=== PATIENT | male | born 1990 | race Caucasian/White ===

== ENCOUNTER 2019-11-25 11:45 | Emergency (ER) | payer OTHER ==
[2019-11-25] MEDS ORDERED: Sodium Chloride 0.9% 1000 ML 1,000 ML IV STA (12:31)
--- NOTE | 2019-11-25 12:31 | ERPHSYRPT ---
- History of Present Illness Time Seen by Provider: 11/25/19 13:00 Source: patient Exam Limitations: no limitations Triage Nursing Assessment: Is a 29-year-old male with a complaint of cough and sinus pain for 1 week worse on the right side. Also complains of shortness of breath and says he is coughing up some dark sputum. His teeth have been hurting he has had fever and chills. Physician History: Patient is a 29-year-old male who presents with a cough shortness of breath x1 week he is also had sinus pain sputum has been produced it is dark in color he has been told he had a mouth infection at [place] and he complains of fever and chills. Allergies/Adverse Reactions: No Known Drug Allergies Allergy (Verified 11/25/19 13:57) - Review of Systems Constitutional: Fever, Chills Eyes: No Symptoms Ears, Nose, & Throat: Ear Pain, Sinus Drainage, Mouth Pain, Throat Swelling, Painful Swallowing Respiratory: No Cough, No Dyspnea Cardiac: No Chest Pain, No Edema, No Syncope Abdominal/Gastrointestinal: No Symptoms Genitourinary Symptoms: No Dysuria Musculoskeletal: No Back Pain, No Neck Pain Skin: No Rash Neurological: No Dizziness, No Focal Weakness, No Sensory Changes Psychological: No Symptoms - Past Medical History Pertinent Past Medical History: No - Nursing Vital Signs Nursing Vital Signs: Initial Vital Signs Temperature 98.7 F 11/25/19 12:25 Pulse Rate 77 11/25/19 12:25 Respiratory Rate 18 11/25/19 12:25 Blood Pressure 136/86 11/25/19 12:25 O2 Sat by Pulse Oximetry 99 11/25/19 12:25 Pain Scale Pain Intensity 10 - Physical Exam General Appearance: mild distress, alert Eye Exam: PERRL/EOMI, eyes nml inspection Ears, Nose, Throat Exam: normal ENT inspection, TMs normal, pharynx normal, moist mucous membranes Neck Exam: normal inspection, non-tender, supple, full range of motion Respiratory Exam: normal breath sounds, lungs clear, No respiratory distress Cardiovascular Exam: regular rate/rhythm, normal heart sounds Gastrointestinal/Abdomen Exam: soft, No tenderness Back Exam: normal inspection, No CVA tenderness, No vertebral tenderness Extremity Exam: normal inspection, normal range of motion Neurologic Exam: alert, oriented x 3, cooperative, normal mood/affect, sensation nml, No motor deficits Skin Exam: normal color, warm, dry, No rash Lymphatic Exam: No adenopathy - Course Nursing assessment & vital signs reviewed: Yes - Radiology Exams Chest X-ray Interpretation: Negative - CT Exams Maxillofacial Bones CT Interpretation: Other (Scan of the sinuses were basically negative.) Ordered Tests: Active Orders 24 hr Category Date Time Status EKG-ER Only STAT Care 11/25/19 12:31 Active CHEST 1 VIEW (PORTABLE) Stat Exams 11/25/19 12:33 Completed SINUSES WITHOUT CONTRAST [CT] Stat Exams 11/25/19 13:34 Completed BLOOD CULTURE Stat Lab 11/25/19 13:30 Received CBC W DIFF Stat Lab 11/25/19 12:31 Completed CMP Stat Lab 11/25/19 12:31 Completed D-DIMER QUANTITATIVE Stat Lab 11/25/19 12:31 Completed Ferritin Stat Lab 11/25/19 12:31 Completed LDH-LACTATE DEHYDROGENASE Stat Lab 11/25/19 12:31 Completed Lactic Acid Stat Lab 11/25/19 13:08 Completed PROTIME WITH INR Stat Lab 11/25/19 12:31 Completed UA W/RFX UR CULTURE Stat Lab 11/25/19 Completed Medication Summary Discontinued Medications Generic Name Dose Route Start Last Admin Trade Name Freq PRN Reason Stop Dose Admin Hydromorphone HCl 1 mg 11/25/19 13:32 11/25/19 13:50 Hydromorphone 1 Mg/Ml Ampule IV 11/25/19 13:33 1 mg STAT ONE Administration Hydromorphone HCl Confirm 11/25/19 13:48 Hydromorphone 1 Mg/Ml Ampule Administered 11/25/19 13:49 Dose 1 mg .ROUTE .STK-MED ONE Hydromorphone HCl 1 mg 11/25/19 15:16 Hydromorphone 1 Mg/Ml Ampule IV 11/25/19 15:17 STAT ONE Hydromorphone HCl Confirm 11/25/19 15:54 Hydromorphone 1 Mg/Ml Ampule Administered 11/25/19 15:55 Dose 1 mg .ROUTE .STK-MED ONE Sodium Chloride 1,000 mls @ 999 mls/hr 11/25/19 12:31 11/25/19 15:01 Sodium Chloride 0.9% 1000 Ml IV 11/25/19 13:31 Infused .Q1H1M STA Infusion Sodium Chloride Confirm 11/25/19 12:53 Sodium Chloride 0.9% 1000 Ml Administered 11/25/19 12:54 Dose 1,000 mls @ ud .ROUTE .STK-MED ONE Ondansetron HCl 4 mg 11/25/19 13:32 11/25/19 13:50 Zofran 4 Mg/2 Ml Vial IV 11/25/19 13:33 4 mg STAT ONE Administration Ondansetron HCl Confirm 11/25/19 13:48 Zofran 4 Mg/2 Ml Vial Administered 11/25/19 13:49 Dose 4 mg .ROUTE .STK-MED ONE Lab/Rad Data: Laboratory Result Diagrams 11/25/19 12:31 11/25/19 12:31 Laboratory Results 11/25/19 11/25/19 11/25/19 Range/Units Unknown Unknown 13:08 WBC (4.0-10.5) K/mm3 RBC (4.1-5.6) M/mm3 Hgb (12.5-18.0) gm/dl Hct (42-50) % MCV (78-100) fl MCH (26-32) pg MCHC (32-36) g/dl RDW (11.5-14.0) % Plt Count (150-450) K/mm3 MPV (7.5-11.0) fl Gran % (36.0-66.0) % Eos # (Auto) (0-0.5) Absolute Lymphs (auto) (1.0-4.6) Absolute Monos (auto) (0.0-1.3) Lymphocytes % (24.0-44.0) % Monocytes % (0.0-12.0) % Eosinophils % (0.00-5.0) % Basophils % (0.0-0.4) % Absolute Granulocytes (1.4-6.9) Basophils # (0-0.4) PT (8.83-12.87) SECONDS INR (0.8-3.0) D-Dimer (215-500) ng/mL Sodium (137-145) mmol/L Potassium (3.5-5.1) mmol/L Chloride (98-107) mmol/L Carbon Dioxide (22-30) mmol/L Anion Gap (5-15) MEQ/L BUN (9-20) mg/dL Creatinine (0.66-1.25) mg/dL Estimated GFR ML/MIN Glucose (74-106) mg/dL Lactic Acid 1.4 (0.4-2.0) Calcium (8.4-10.2) mg/dL Ferritin (17.9-464) ng/mL Total Bilirubin (0.2-1.3) mg/dL AST (17-59) U/L ALT (0-50) U/L Alkaline Phosphatase (38-126) U/L Lactate Dehydrogenase (120-246) U/L Serum Total Protein (6.3-8.2) g/dL Albumin (3.5-5.0) g/dL Urine Color YELLOW (YELLOW) Urine Appearance CLEAR (CLEAR) Urine pH 7.0 (5-6) Ur Specific [place] 1.011 (1.005-1.025) Urine Protein NEGATIVE (Negative) Urine Ketones NEGATIVE (NEGATIVE) Urine Blood NEGATIVE (0-5) Stevie/ul Urine Nitrite NEGATIVE (NEGATIVE) Urine Bilirubin NEGATIVE (NEGATIVE) Urine Urobilinogen NEGATIVE (0-1) mg/dL Ur Leukocyte Esterase NEGATIVE (NEGATIVE) Urine WBC (Auto) NONE (0-5) /HPF Urine RBC (Auto) NONE (0-2) /HPF U Epithel Cells (Auto) NONE (FEW) /HPF Urine Bacteria (Auto) NONE (NEGATIVE) /HPF Urine Culture Reflexed NO (NO) Urine Glucose NEGATIVE (NEGATIVE) mg/dL Influenza Type A Ag NEGATIVE (NEGATIVE) Influenza Type B Ag NEGATIVE (NEGATIVE) RSV (PCR) NEGATIVE (Negative) Group A Strep Antibody NOT DETECTED (NEGATIVE) 11/25/19 11/25/19 11/25/19 Range/Units 12:31 12:31 12:31 WBC 10.8 H (4.0-10.5) K/mm3 RBC 4.87 (4.1-5.6) M/mm3 Hgb 15.3 (12.5-18.0) gm/dl Hct 45.4 (42-50) % MCV 93.2 (78-100) fl MCH 31.4 (26-32) pg MCHC 33.7 (32-36) g/dl RDW 13.3 (11.5-14.0) % Plt Count 208 (150-450) K/mm3 MPV 11.1 H (7.5-11.0) fl Gran % 72.5 H (36.0-66.0) % Eos # (Auto) 0.03 (0-0.5) Absolute Lymphs (auto) 1.96 (1.0-4.6) Absolute Monos (auto) 0.96 (0.0-1.3) Lymphocytes % 18.2 L (24.0-44.0) % Monocytes % 8.9 (0.0-12.0) % Eosinophils % 0.3 (0.00-5.0) % Basophils % 0.1 (0.0-0.4) % Absolute Granulocytes 7.81 H (1.4-6.9) Basophils # 0.01 (0-0.4) PT 13.0 H (8.83-12.87) SECONDS INR 1.15 (0.8-3.0) D-Dimer 427 (215-500) ng/mL Sodium 139 (137-145) mmol/L Potassium 3.9 (3.5-5.1) mmol/L Chloride 104 (98-107) mmol/L Carbon Dioxide 26 (22-30) mmol/L Anion Gap 13.2 (5-15) MEQ/L BUN 9 (9-20) mg/dL Creatinine 0.69 (0.66-1.25) mg/dL Estimated GFR > 60.0 ML/MIN Glucose 101 (74-106) mg/dL Lactic Acid (0.4-2.0) Calcium 9.7 (8.4-10.2) mg/dL Ferritin 136 (17.9-464) ng/mL Total Bilirubin 1.30 (0.2-1.3) mg/dL AST 35 (17-59) U/L ALT 18 (0-50) U/L Alkaline Phosphatase 72 (38-126) U/L Lactate Dehydrogenase 207 (120-246) U/L Serum Total Protein 8.7 H (6.3-8.2) g/dL Albumin 5.0 (3.5-5.0) g/dL Urine Color (YELLOW) Urine Appearance (CLEAR) Urine pH (5-6) Ur Specific [place] (1.005-1.025) Urine Protein (Negative) Urine Ketones (NEGATIVE) Urine Blood (0-5) Stevie/ul Urine Nitrite (NEGATIVE) Urine Bilirubin (NEGATIVE) Urine Urobilinogen (0-1) mg/dL Ur Leukocyte Esterase (NEGATIVE) Urine WBC (Auto) (0-5) /HPF Urine RBC (Auto) (0-2) /HPF U Epithel Cells (Auto) (FEW) /HPF Urine Bacteria (Auto) (NEGATIVE) /HPF Urine Culture Reflexed (NO) Urine Glucose (NEGATIVE) mg/dL Influenza Type A Ag (NEGATIVE) Influenza Type B Ag (NEGATIVE) RSV (PCR) (Negative) Group A Strep Antibody (NEGATIVE) - Progress Progress: unchanged Air Movement: fair Blood Culture(s) Obtained: No Antibiotics given: Yes - Departure Departure Disposition: Home Clinical Impression: Bronchitis Condition: Stable Critical Care Time: No Referrals: UMANG DOANHUE [Primary Care Provider] - Instructions: Cough, Adult (DC) Prescriptions: Hydrocodone/APAP 5-325 Tab^^^ [[place] 5-325 Tablet^^^] 1 tab PO Q6HPRN PRN #10 tablet MDD 6 PRN Reason: Pain Cephalexin Mh 500 mg [Keflex 500 mg] 500 mg PO TID #21 capsule
[2019-11-25] MEDS ORDERED: Sodium Chloride 0.9% 1000 ML 1,000 ML ONE (12:53)
--- NOTE | 2019-11-25 13:03 | XRAY ---
Indication: Cough and short of breath. Comparison: September 09, 2019. Portable apical lordotic chest remains clear. Heart within normal limits for AP portable technique. No new/acute findings.
[2019-11-25] MEDS ORDERED: Hydromorphone 1 mg/ml Ampule IV ONE ×2 (13:32→15:16)
[2019-11-25] MEDS ORDERED: Zofran 4 MG/2 ML VIAL IV ONE (13:32)
[2019-11-25 13:33] VITALS: O2SAT 97
[2019-11-25 13:47] LABS: Absolute Neutrophil Ct (ANC) 7.81 (1.4-6.9); BASOPHIL % 0.1 % (0.0-0.4); Basophil (Absolute #) 0.01 (0-0.4); Eosinophil % 0.3 % (0.00-5.0); Eosinophil (Absolute #) 0.03 (0-0.5); Hematocrit 45.4 % (42-50); Hemoglobin 15.3 gm/dl (12.5-18.0); Lymphocyte (Absolute #) 1.96 (1.0-4.6); Lymphocytes % 18.2 % (24.0-44.0); Mean Cell Volume 93.2 fl (78-100); Mean Corpuscular Hemoglobin 31.4 pg (26-32); Mean Corpuscular Hgb Concent. 33.7 g/dl (32-36); Mean Platelet Volume 11.1 fl (7.5-11.0); Monocyte (Absolute #) 0.96 (0.0-1.3); Monocytes % 8.9 % (0.0-12.0); Neutrophil % 72.5 % (36.0-66.0); Platelet Count 208 K/mm3 (150-450); Red Blood Count 4.87 M/mm3 (4.1-5.6); Red Cell Distribution Width 13.3 % (11.5-14.0); White Blood Count 10.8 K/mm3 (4.0-10.5)
[2019-11-25] MEDS ORDERED: Zofran 4 MG/2 ML VIAL ONE (13:48)
[2019-11-25] MEDS ORDERED: Hydromorphone 1 mg/ml Ampule ONE ×2 (13:48→15:54)
[2019-11-25 14:03] LABS: Appearance CLEAR (CLEAR); Bilirubin NEGATIVE (NEGATIVE); Blood NEGATIVE Ery/ul (0-5); Glucose NEGATIVE (NEGATIVE); Ketones NEGATIVE (NEGATIVE); Leukocyte Esterase NEGATIVE (NEGATIVE); Nitrite NEGATIVE (NEGATIVE); Protein,Urine Dip NEGATIVE (Negative); Specific Gravity 1.011 (1.005-1.025); Urobilinogen NEGATIVE mg/dL (0-1)
[2019-11-25 14:24] LABS: INFLUENZA A NEGATIVE (NEGATIVE); INFLUENZA B NEGATIVE (NEGATIVE); RESPIRATORY SYNCTIAL VIRUS NEGATIVE (Negative)
[2019-11-25 14:31] LABS: ALKALINE PHOSPHATASE 72 U/L (38-126); ANION GAP 13.2 MEQ/L (5-15); BLOOD UREA NITROGEN 9 mg/dL (9-20); CHLORIDE 104 mmol/L (98-107); Calcium 9.7 mg/dL (8.4-10.2); Carbon Dioxide 26 mmol/L (22-30); Creatinine 1 0.69 mg/dL (0.66-1.25); Ferritin 136 ng/mL (17.9-464); Glucose 101 mg/dL (74-106); LDH-LACTATE DEHYDROGENASE 207 U/L (120-246); Potassium 3.9 mmol/L (3.5-5.1); SGOT/AST 35 U/L (17-59); SGPT/ALT 18 U/L (0-50); SODIUM 139 mmol/L (137-145); Total Protein 8.7 g/dL (6.3-8.2)
[2019-11-25 14:32] LABS: INR 1.15 (0.8-3.0)
--- NOTE | 2019-11-25 15:26 | XRAY ---
Indication: Headache and cough. Multiple contiguous axial images obtained through the paranasal sinuses. Sagittal and coronal reformatted images obtained. Comparison: None A few dental amalgams produces beam artifact. Multiple bilateral dental caries. Paranasal sinuses and nasal passages are clear. Ostiomeatal units are bilaterally patent. Incidental middle turbinate tri bullosa, right greater the left. Mild nasal septal deviation to the left. No acute fracture, suspicious bony lesions, or osseous destructive process. Mastoid air cells are clear. Visualized noncontrasted soft tissues including orbits and base of the brain unremarkable. Impression: Negative CT sinuses. Incidental nasal septal deviation, bilateral middle turbinate tri bullosa, multiple dental caries.
[2019-11-25] MEDS ORDERED: Rocephin 1000 MG INJ IM ONE (15:56)
[2019-11-25] MEDS ORDERED: ROCEPHIN 1 Gm-D5w 50 ml Bag** 1 G/50 ML IVPB IV STA (16:07)
[2019-11-25] MEDS ORDERED: ROCEPHIN 1 Gm-D5w 50 ml Bag** 1 G/50 ML IVPB IV ONE (16:09)
[2019-11-25 16:54] VITALS: BP 110/67; PULSE 65
== END 2019-11-25 16:55 | disposition home or self-care (01) ==
LOC: ED 11:45
DX: J40 Bronchitis, not specified as acute or chronic (principal)
CPT/HCPCS: 36000; 36415; 70486; 71045; 80053; 81001; 82728; 83605; 83615; 85025; 85379; 85610; 87040; 87631; 87651; 93005; 96360; 96365; 96374; 96375; 96376; 99285; J0696; J1170; J2405

== ENCOUNTER 2019-11-26 17:06 | Emergency (ER) | payer OTHER ==
[2019-11-26] MEDS ORDERED: TORAdol 30 mg Injection IM ONE (17:19)
[2019-11-26] MEDS ORDERED: TORAdol 30 mg Injection ONE (17:23)
[2019-11-26 17:26] VITALS: O2SAT 98
--- NOTE | 2019-11-26 17:26 | ERPHSYRPT ---
- History of Present Illness Time Seen by Provider: 11/26/19 17:30 Source: patient Exam Limitations: no limitations Patient Subjective Stated Complaint: pt here for pain and swelling to right lower jaw, he states the swelling jaw is worse, pt was seen in er last night for the samething, Triage Nursing Assessment: pt alert, resp easy, skin w/d/p. has swelling to face, no reddness noted Physician History: Patient is a 29-year-old male presents to our ED with complaint of swelling to his right lower jaw. Patient was in our ED yesterday for the same. Patient was diagnosed with a dental abscess. Patient was given antibiotics and pain medication. Patient is here because the swelling is worse today. No interval trauma. No fever. No headache. Patient took a [place] pill that slightly improved since pain symptoms. No difficulty swallowing. No trismus. Patient is otherwise healthy. Tetanus is up-to-date. Patient had a CAT scan yesterday as well. Patient voices no other complaints at this time. Timing/Duration: abrupt onset Severity: moderate ENT Location: dental Prearrival Treatment: no prearrival treatment (mastication) Associated Symptoms: fever, chills, drooling, facial pain/swelling, No dizziness Allergies/Adverse Reactions: No Known Drug Allergies Allergy (Verified 11/25/19 13:57) Hx Tetanus, Diphtheria Vaccination/Date Given: Yes Hx Influenza Vaccination/Date Given: Yes Hx Pneumococcal Vaccination/Date Given: No Immunizations Up to Date: Yes Travel Risk - International Travel Have you traveled outside of the country in past 3 weeks: No - Coronavirus Screening Are you exhibiting any of the following symptoms?: No Close contact with a COVID-19 positive Pt in past 14-21 Days: No - Review of Systems Constitutional: No Symptoms, No Fever, No Chills Eyes: No Symptoms Ears, Nose, & Throat: No Symptoms Respiratory: No Symptoms, No Cough, No Dyspnea Cardiac: No Symptoms, No Chest Pain, No Edema, No Syncope Abdominal/Gastrointestinal: No Symptoms, No Abdominal Pain, No Nausea, No Vomiting, No Diarrhea Genitourinary Symptoms: No Symptoms, No Dysuria Musculoskeletal: No Symptoms, No Back Pain, No Neck Pain Skin: No Symptoms, No Rash Neurological: No Symptoms, No Dizziness, No Focal Weakness, No Sensory Changes Psychological: No Symptoms Endocrine: No Symptoms Hematologic/Lymphatic: No Symptoms Immunological/Allergic: No Symptoms All Other Systems: Reviewed and Negative - Past Medical History Pertinent Past Medical History: No Neurological History: No Pertinent History ENT History: No Pertinent History Cardiac History: No Pertinent History Respiratory History: Asthma Endocrine Medical History: No Pertinent History Musculoskeletal History: No Pertinent History GI Medical History: No Pertinent History History: No Pertinent History Psycho-Social History: No Pertinent History Male Reproductive Disorders: No Pertinent History - Past Surgical History Past Surgical History: Yes Neuro Surgical History: No Pertinent History Cardiac: No Pertinent History Respiratory: No Pertinent History Gastrointestinal: Hernia Repair Genitourinary: No Pertinent History Musculoskeletal: Orthopedic Surgery Male Surgical History: No Pertinent History - Social History Smoking Status: Never smoker Exposure to second hand smoke: No Drug Use: none Patient Lives Alone: No - Nursing Vital Signs Nursing Vital Signs: Initial Vital Signs O2 Sat by Pulse Oximetry 98 11/26/19 17:26 Pain Scale Pain Intensity 9 - Physical Exam General Appearance: no apparent distress, alert Eye Exam: bilateral eye: normal inspection, PERRL, EOMI Ear Exam: bilateral ear: auricle normal, canal normal, TM normal Nasal Exam: normal inspection Throat Exam: pharynx normal, moist mucus membranes, No tonsillar exudate, No tonsillar swelling (Tooth #3 is carious. There is an abscess at this tooth. Percussion reproduces symptoms. There is swelling adjacent to this location as well. Airway is not compromised. Patient does not exhibit symptomology consistent with Chava's angina. No sublingual swelling. Uvula at midline.) Neck Exam: supple Cardiovascular/Respiratory Exam: normal breath sounds, regular rate/rhythm Abdominal Exam: non-tender, soft Neurologic Exam: alert, oriented x 3, sensation nml, No motor deficits Skin Exam: normal color, warm, dry SpO2 Interpretation: normal SpO2: 98 O2 Delivery: Room Air - Course Nursing assessment & vital signs reviewed: Yes Ordered Tests: Medication Summary Discontinued Medications Generic Name Dose Route Start Last Admin Trade Name Mumtazq PRN Reason Stop Dose Admin Ketorolac Tromethamine 60 mg 11/26/19 17:19 11/26/19 17:24 Toradol 30 Mg Injection IM 11/26/19 17:20 60 mg STAT ONE Administration Ketorolac Tromethamine Confirm 11/26/19 17:23 Toradol 30 Mg Injection Administered 11/26/19 17:24 Dose 60 mg .ROUTE .STK-MED ONE - Progress Progress: improved Progress Note: 11/26/19 18:00 Patient reassessed. Pain improved. Patient to continue antibiotics. Patient will see a dentist within the next 24 hours for reevaluation. No further work- up indicated at this time. Plan of care discussed with patient. He understands the plan of care and agrees to follow-up with the dentist as discussed. Counseled pt/family regarding: diagnosis, need for follow-up - Departure Departure Disposition: Home Clinical Impression: Dental abscess, Carious teeth Condition: Stable Critical Care Time: No Referrals: UMANG DONAHUE [Primary Care Provider] - Additional Instructions: Discharge/Care Plan GARY SAAVEDRA was seen on 11/26/19 in the Emergency Room. The patient was counseled regarding Diagnosis,Lab results, Imaging studies, need for follow up and when to return to the Emergency Room. Prescriptions given: Discharge Note I have spoken with the patient and/or caregivers. I have explained the patient's condition, diagnosis and treatment plan based on the information available to me at this time. I have answered the patient's and/or caregiver's questions and addressed any concerns. The patient and/or caregivers have as good understanding of the patient's diagnosis, condition and treatment plan as can be expected at this point. The vital signs have been stable. The patient's condition is stable and appropriate for discharge from the emergency department. The patient will pursue further outpatient evaluation with the primary care physician or other designated or consulting physician as outlined in the discharge instructions. The patient and/or caregivers are agreeable to this plan of care and follow-up instructions have been explained in detail. The patient and/or caregivers have received these instruction. The patient/and or caregivers are aware that any significant change in condition or worsening of symptoms should prompt an immediate return to this or the closest emergency department or call 911.
== END 2019-11-26 18:16 | disposition home or self-care (01) ==
LOC: ED 17:06
DX: K04.7 Periapical abscess without sinus (principal); K02.9 Dental caries, unspecified
CPT/HCPCS: 96372; 99283; J1885

== ENCOUNTER 2019-12-22 13:46 | Emergency (ER) | payer OTHER ==
--- NOTE | 2019-12-22 13:56 | ERPHSYRPT ---
- History of Present Illness Time Seen by Provider: 12/22/19 14:10 Source: patient Exam Limitations: no limitations Physician History: This is a 29-year-old white male who presents with symptoms of generalized weakness, nausea and heat exposure. Patient temperature taken under his arm earlier showed a fever. Patient had his temperature taken here in the emergency department and the temperature was normal. Patient was out in the sun for several hours yesterday playing softball. After being home, his significant other states that he was somewhat irritable did not sleep well was not taking oral intake well. He complained of persistent nausea. Patient has no known exposure to anyone with COVID-19. He has had no cough no shortness of breath. He does not have chest pain. He has no abdominal pain. He had some diarrhea yesterday and today as well. Patient has a history of Klippel-Trenaunay syndrome Timing/Duration: today Severity: moderate Associated Symptoms: nausea, vomiting, headaches, loss of appetite, malaise, weakness, other (Diarrhea) Allergies/Adverse Reactions: No Known Drug Allergies Allergy (Verified 11/25/19 13:57) Hx Tetanus, Diphtheria Vaccination/Date Given: Yes Hx Influenza Vaccination/Date Given: Yes Hx Pneumococcal Vaccination/Date Given: No Travel Risk - International Travel Have you traveled outside of the country in past 3 weeks: No - Coronavirus Screening Are you exhibiting any of the following symptoms?: Yes Symptoms: Vomiting/Diarrhea, Headaches/Body Aches/Fatigue Close contact with a COVID-19 positive Pt in past 14-21 Days: No - Review of Systems Constitutional: Fever, Malaise, Weakness Eyes: No Symptoms Ears, Nose, & Throat: No Symptoms Respiratory: No Symptoms Cardiac: No Symptoms Abdominal/Gastrointestinal: Nausea, Vomiting, Diarrhea, No Abdominal Pain Genitourinary Symptoms: No Symptoms Musculoskeletal: No Symptoms Skin: No Symptoms Neurological: No Symptoms Psychological: No Symptoms Endocrine: No Symptoms Hematologic/Lymphatic: No Symptoms Immunological/Allergic: No Symptoms All Other Systems: Reviewed and Negative - Past Medical History Pertinent Past Medical History: No Neurological History: No Pertinent History ENT History: No Pertinent History Cardiac History: No Pertinent History Respiratory History: Asthma Endocrine Medical History: No Pertinent History Musculoskeletal History: No Pertinent History GI Medical History: No Pertinent History History: No Pertinent History Psycho-Social History: No Pertinent History Male Reproductive Disorders: No Pertinent History Other Medical History: kts syndrome - Past Surgical History Past Surgical History: Yes Neuro Surgical History: No Pertinent History Cardiac: No Pertinent History Respiratory: No Pertinent History Gastrointestinal: Hernia Repair Genitourinary: No Pertinent History Musculoskeletal: Orthopedic Surgery Male Surgical History: No Pertinent History - Social History Smoking Status: Never smoker Exposure to second hand smoke: No Drug Use: none Patient Lives Alone: No - Nursing Vital Signs Nursing Vital Signs: Initial Vital Signs Temperature 98.5 F 12/22/19 13:52 Pulse Rate 103 H 12/22/19 13:52 Respiratory Rate 22 12/22/19 13:52 Blood Pressure 113/79 12/22/19 13:52 O2 Sat by Pulse Oximetry 100 12/22/19 13:52 Pain Scale Pain Intensity 2 - Physical Exam General Appearance: mild distress, alert, anxiety Eye Exam: PERRL/EOMI, eyes nml inspection Ears, Nose, Throat Exam: normal ENT inspection, moist mucous membranes Neck Exam: normal inspection, non-tender, supple, full range of motion Respiratory Exam: normal breath sounds, lungs clear, airway intact, No chest tenderness, No respiratory distress Cardiovascular Exam: regular rate/rhythm, normal heart sounds, normal peripheral pulses Gastrointestinal/Abdomen Exam: soft, normal bowel sounds, No tenderness, No guarding, No rebound Rectal Exam: not done Back Exam: normal inspection, normal range of motion, No CVA tenderness, No vertebral tenderness Extremity Exam: normal inspection, normal range of motion, pelvis stable Neurologic Exam: alert, oriented x 3, cooperative, admitting counselor II-XII nml as tested Skin Exam: normal color, warm, dry Lymphatic Exam: No adenopathy SpO2 Interpretation: normal O2 Delivery: Room Air - Course Nursing assessment & vital signs reviewed: Yes Ordered Tests: Active Orders 24 hr Category Date Time Status IV Insertion STAT Care 12/22/19 14:07 Active BLOOD CULTURE Stat Lab 12/22/19 16:51 Received CBC W DIFF Stat Lab 12/22/19 14:10 Completed CMP Stat Lab 12/22/19 14:10 Completed Lactic Acid Stat Lab 12/22/19 14:07 Completed Lactic Acid Stat Lab 12/22/19 16:20 Completed [place] Screen Stat Lab 12/22/19 15:00 Completed UA W/RFX UR CULTURE Stat Lab 12/22/19 14:56 Completed Urine Triage Profile Stat Lab 12/22/19 14:56 Completed Medication Summary Generic Name Dose Route Start Last Admin Trade Name Fernando PRN Reason Stop Dose Admin Sodium Chloride 500 mls @ 500 mls/hr 12/22/19 17:14 12/22/19 17:18 Sodium Chloride 0.9% 500 Ml IV 12/22/19 18:13 500 mls/hr .Q1H ONE Administration Discontinued Medications Generic Name Dose Route Start Last Admin Trade Name Fernando PRN Reason Stop Dose Admin Acetaminophen 650 mg 12/22/19 17:05 12/22/19 17:12 Tylenol 325 Mg PO 12/22/19 17:06 650 mg STAT STA Administration Acetaminophen Confirm 12/22/19 17:11 Tylenol 325 Mg Administered 12/22/19 17:12 Dose 650 mg .ROUTE .STK-MED ONE Famotidine 20 mg 12/22/19 14:07 12/22/19 14:19 Pepcid 20 Mg Vial IV 12/22/19 14:08 20 mg STAT ONE Administration Famotidine Confirm 12/22/19 14:17 Pepcid 20 Mg Vial Administered 12/22/19 14:18 Dose 20 mg IV .STK-MED ONE Sodium Chloride 1,000 mls @ 999 mls/hr 12/22/19 14:07 12/22/19 15:22 Sodium Chloride 0.9% 1000 Ml IV 12/22/19 15:07 Infused .Q1H1M STA Infusion Sodium Chloride Confirm 12/22/19 14:17 Sodium Chloride 0.9% 1000 Ml Administered 12/22/19 14:18 Dose 1,000 mls @ ud .ROUTE .STK-MED ONE Sodium Chloride 1,000 mls @ 999 mls/hr 12/22/19 15:25 12/22/19 17:05 Sodium Chloride 0.9% 1000 Ml IV 12/22/19 16:25 Infused .Q1H1M STA Infusion Sodium Chloride Confirm 12/22/19 15:24 Sodium Chloride 0.9% 1000 Ml Administered 12/22/19 15:25 Dose 1,000 mls @ ud .ROUTE .STK-MED ONE Sodium Chloride Confirm 12/22/19 17:17 Sodium Chloride 0.9% 500 Ml Administered 12/22/19 17:18 Dose 500 mls @ ud IV .STK-MED ONE Ibuprofen 600 mg 12/22/19 17:05 12/22/19 17:12 Motrin 600 Mg PO 12/22/19 17:06 600 mg STAT ONE Administration Ibuprofen Confirm 12/22/19 17:11 Motrin 600 Mg Administered 12/22/19 17:12 Dose 600 mg .ROUTE .STK-MED ONE Ondansetron HCl 4 mg 12/22/19 14:07 12/22/19 14:19 Zofran 4 Mg/2 Ml Vial IV 12/22/19 14:08 4 mg STAT ONE Administration Ondansetron HCl Confirm 12/22/19 14:17 Zofran 4 Mg/2 Ml Vial Administered 12/22/19 14:18 Dose 4 mg .ROUTE .STK-MED ONE Lab/Rad Data: Laboratory Result Diagrams 12/22/19 14:10 12/22/19 14:10 Laboratory Results 12/22/19 12/22/19 12/22/19 Range/Units 16:20 15:00 14:56 WBC (4.0-10.5) K/mm3 RBC (4.1-5.6) M/mm3 Hgb (12.5-18.0) gm/dl Hct (42-50) % MCV (78-100) fl MCH (26-32) pg MCHC (32-36) g/dl RDW (11.5-14.0) % Plt Count (150-450) K/mm3 MPV (7.5-11.0) fl Gran % (36.0-66.0) % Eos # (Auto) (0-0.5) Absolute Lymphs (auto) (1.0-4.6) Absolute Monos (auto) (0.0-1.3) Lymphocytes % (24.0-44.0) % Monocytes % (0.0-12.0) % Eosinophils % (0.00-5.0) % Basophils % (0.0-0.4) % Absolute Granulocytes (1.4-6.9) Basophils # (0-0.4) Sodium (137-145) mmol/L Potassium (3.5-5.1) mmol/L Chloride (98-107) mmol/L Carbon Dioxide (22-30) mmol/L Anion Gap (5-15) MEQ/L BUN (9-20) mg/dL Creatinine (0.66-1.25) mg/dL Estimated GFR ML/MIN Glucose (74-106) mg/dL Lactic Acid 1.0 (0.4-2.0) Calcium (8.4-10.2) mg/dL Total Bilirubin (0.2-1.3) mg/dL AST (17-59) U/L ALT (0-50) U/L Alkaline Phosphatase (38-126) U/L Serum Total Protein (6.3-8.2) g/dL Albumin (3.5-5.0) g/dL Urine Color (YELLOW) Urine Appearance (CLEAR) Urine pH (5-6) Ur Specific [place] (1.005-1.025) Urine Protein (Negative) Urine Ketones (NEGATIVE) Urine Blood (0-5) Stevie/ul Urine Nitrite (NEGATIVE) Urine Bilirubin (NEGATIVE) Urine Urobilinogen (0-1) mg/dL Ur Leukocyte Esterase (NEGATIVE) Urine WBC (Auto) (0-5) /HPF Urine RBC (Auto) (0-2) /HPF U Epithel Cells (Auto) (FEW) /HPF Urine Bacteria (Auto) (NEGATIVE) /HPF Urine Mucus (Auto) (NEGATIVE) /HPF Urine Culture Reflexed (NO) Urine Glucose (NEGATIVE) mg/dL Urine Opiates Level NEGATIVE (NEGATIVE) Ur Methadone NEGATIVE (NEGATIVE) Urine Barbiturates NEGATIVE (NEGATIVE) Ur Phencyclidine (PCP) NEGATIVE (NEGATIVE) Urine Amphetamine NEGATIVE (NEGATIVE) U Benzodiazepine Level NEGATIVE (NEGATIVE) Urine Cocaine NEGATIVE (NEGATIVE) Urine Marijuana (THC) NEGATIVE (NEGATIVE) Monoscreen NEGATIVE (Negative) Influenza Type A Ag (NEGATIVE) Influenza Type B Ag (NEGATIVE) RSV (PCR) (Negative) 12/22/19 12/22/19 12/22/19 Range/Units 14:56 14:45 14:10 WBC (4.0-10.5) K/mm3 RBC (4.1-5.6) M/mm3 Hgb (12.5-18.0) gm/dl Hct (42-50) % MCV (78-100) fl MCH (26-32) pg MCHC (32-36) g/dl RDW (11.5-14.0) % Plt Count (150-450) K/mm3 MPV (7.5-11.0) fl Gran % (36.0-66.0) % Eos # (Auto) (0-0.5) Absolute Lymphs (auto) (1.0-4.6) Absolute Monos (auto) (0.0-1.3) Lymphocytes % (24.0-44.0) % Monocytes % (0.0-12.0) % Eosinophils % (0.00-5.0) % Basophils % (0.0-0.4) % Absolute Granulocytes (1.4-6.9) Basophils # (0-0.4) Sodium 134 L (137-145) mmol/L Potassium 4.3 (3.5-5.1) mmol/L Chloride 99 (98-107) mmol/L Carbon Dioxide 25 (22-30) mmol/L Anion Gap 14.6 (5-15) MEQ/L BUN 14 (9-20) mg/dL Creatinine 1.00 (0.66-1.25) mg/dL Estimated GFR > 60.0 ML/MIN Glucose 121 H (74-106) mg/dL Lactic Acid (0.4-2.0) Calcium 8.9 (8.4-10.2) mg/dL Total Bilirubin 1.50 H (0.2-1.3) mg/dL AST 30 (17-59) U/L ALT 14 (0-50) U/L Alkaline Phosphatase 63 (38-126) U/L Serum Total Protein 8.1 (6.3-8.2) g/dL Albumin 4.6 (3.5-5.0) g/dL Urine Color YELLOW (YELLOW) Urine Appearance CLEAR (CLEAR) Urine pH 9.0 (5-6) Ur Specific [place] 1.018 (1.005-1.025) Urine Protein 30 (Negative) Urine Ketones NEGATIVE (NEGATIVE) Urine Blood NEGATIVE (0-5) Stevie/ul Urine Nitrite NEGATIVE (NEGATIVE) Urine Bilirubin NEGATIVE (NEGATIVE) Urine Urobilinogen NEGATIVE (0-1) mg/dL Ur Leukocyte Esterase NEGATIVE (NEGATIVE) Urine WBC (Auto) NONE (0-5) /HPF Urine RBC (Auto) NONE (0-2) /HPF U Epithel Cells (Auto) NONE (FEW) /HPF Urine Bacteria (Auto) NONE (NEGATIVE) /HPF Urine Mucus (Auto) SLIGHT (NEGATIVE) /HPF Urine Culture Reflexed NO (NO) Urine Glucose NEGATIVE (NEGATIVE) mg/dL Urine Opiates Level (NEGATIVE) Ur Methadone (NEGATIVE) Urine Barbiturates (NEGATIVE) Ur Phencyclidine (PCP) (NEGATIVE) Urine Amphetamine (NEGATIVE) U Benzodiazepine Level (NEGATIVE) Urine Cocaine (NEGATIVE) Urine Marijuana (THC) (NEGATIVE) Monoscreen (Negative) Influenza Type A Ag NEGATIVE (NEGATIVE) Influenza Type B Ag NEGATIVE (NEGATIVE) RSV (PCR) NEGATIVE (Negative) 12/22/19 12/22/19 Range/Units 14:10 14:07 WBC 16.4 H (4.0-10.5) K/mm3 RBC 4.68 (4.1-5.6) M/mm3 Hgb 14.3 (12.5-18.0) gm/dl Hct 43.4 (42-50) % MCV 92.7 (78-100) fl MCH 30.6 (26-32) pg MCHC 32.9 (32-36) g/dl RDW 13.3 (11.5-14.0) % Plt Count 168 (150-450) K/mm3 MPV 10.3 (7.5-11.0) fl Gran % 89.5 H (36.0-66.0) % Eos # (Auto) 0.01 (0-0.5) Absolute Lymphs (auto) 0.74 L (1.0-4.6) Absolute Monos (auto) 0.96 (0.0-1.3) Lymphocytes % 4.5 L (24.0-44.0) % Monocytes % 5.9 (0.0-12.0) % Eosinophils % 0.1 (0.00-5.0) % Basophils % 0.0 (0.0-0.4) % Absolute Granulocytes 14.65 H (1.4-6.9) Basophils # 0 (0-0.4) Sodium (137-145) mmol/L Potassium (3.5-5.1) mmol/L Chloride (98-107) mmol/L Carbon Dioxide (22-30) mmol/L Anion Gap (5-15) MEQ/L BUN (9-20) mg/dL Creatinine (0.66-1.25) mg/dL Estimated GFR ML/MIN Glucose (74-106) mg/dL Lactic Acid 2.5 H (0.4-2.0) Calcium (8.4-10.2) mg/dL Total Bilirubin (0.2-1.3) mg/dL AST (17-59) U/L ALT (0-50) U/L Alkaline Phosphatase (38-126) U/L Serum Total Protein (6.3-8.2) g/dL Albumin (3.5-5.0) g/dL Urine Color (YELLOW) Urine Appearance (CLEAR) Urine pH (5-6) Ur Specific [place] (1.005-1.025) Urine Protein (Negative) Urine Ketones (NEGATIVE) Urine Blood (0-5) Stevie/ul Urine Nitrite (NEGATIVE) Urine Bilirubin (NEGATIVE) Urine Urobilinogen (0-1) mg/dL Ur Leukocyte Esterase (NEGATIVE) Urine WBC (Auto) (0-5) /HPF Urine RBC (Auto) (0-2) /HPF U Epithel Cells (Auto) (FEW) /HPF Urine Bacteria (Auto) (NEGATIVE) /HPF Urine Mucus (Auto) (NEGATIVE) /HPF Urine Culture Reflexed (NO) Urine Glucose (NEGATIVE) mg/dL Urine Opiates Level (NEGATIVE) Ur Methadone (NEGATIVE) Urine Barbiturates (NEGATIVE) Ur Phencyclidine (PCP) (NEGATIVE) Urine Amphetamine (NEGATIVE) U Benzodiazepine Level (NEGATIVE) Urine Cocaine (NEGATIVE) Urine Marijuana (THC) (NEGATIVE) Monoscreen (Negative) Influenza Type A Ag (NEGATIVE) Influenza Type B Ag (NEGATIVE) RSV (PCR) (Negative) - Progress Progress: improved Progress Note: 12/22/19 17:36 Medical decision making: This patient does have leukocytosis. He had an elevated lactic acid level which is now normal. His symptoms have improved. He no longer has nausea and is tolerating liquid intake. His influenza RSV and mono tests are all negative. The COVID 19 test results are pending. Patient's myalgias are also gone per his report. He is feeling better and just feels drained. He would like to go home. We will wait until his final fluid via intravenous delivery has been completed and he tolerates oral intake well. 12/22/19 18:12 Patient states that he is feeling much better. He wants to go home. We will discharge him to home and he is to quarantine until his test results are back Counseled pt/family regarding: lab results, diagnosis, need for follow-up - Departure Departure Disposition: Home Clinical Impression: Heat exposure, Nausea and vomiting, Dehydration, mild Condition: Stable Critical Care Time: No Referrals: UMANG DONAHUE [Primary Care Provider] - Additional Instructions: Drink plenty of fluids. Use Tylenol and ibuprofen for pain and fever control. Quarantine yourself per instructions until your test results have returned. Prescriptions: Ondansetron HCl [Zofran] 4 mg PO TID PRN #10 tablet PRN Reason: Nausea/Vomiting
[2019-12-22] MEDS ORDERED: Sodium Chloride 0.9% 1000 ML 1,000 ML IV STA ×2 (14:07→15:25)
[2019-12-22] MEDS ORDERED: Pepcid 20 MG VIAL IV ONE ×2 (14:07→14:17)
[2019-12-22] MEDS ORDERED: Zofran 4 MG/2 ML VIAL IV ONE (14:07)
[2019-12-22] MEDS ORDERED: Zofran 4 MG/2 ML VIAL ONE (14:17)
[2019-12-22] MEDS ORDERED: Sodium Chloride 0.9% 1000 ML 1,000 ML ONE ×2 (14:17→15:24)
[2019-12-22 14:26] LABS: Absolute Neutrophil Ct (ANC) 14.65 (1.4-6.9); Basophil (Absolute #) 0 (0-0.4); Eosinophil % 0.1 % (0.00-5.0); Eosinophil (Absolute #) 0.01 (0-0.5); Hematocrit 43.4 % (42-50); Hemoglobin 14.3 gm/dl (12.5-18.0); Lymphocyte (Absolute #) 0.74 (1.0-4.6); Lymphocytes % 4.5 % (24.0-44.0); Mean Cell Volume 92.7 fl (78-100); Mean Corpuscular Hemoglobin 30.6 pg (26-32); Mean Corpuscular Hgb Concent. 32.9 g/dl (32-36); Mean Platelet Volume 10.3 fl (7.5-11.0); Monocyte (Absolute #) 0.96 (0.0-1.3); Monocytes % 5.9 % (0.0-12.0); Neutrophil % 89.5 % (36.0-66.0); Platelet Count 168 K/mm3 (150-450); Red Blood Count 4.68 M/mm3 (4.1-5.6); Red Cell Distribution Width 13.3 % (11.5-14.0); White Blood Count 16.4 K/mm3 (4.0-10.5)
[2019-12-22 14:34] LABS: ALBUMIN 4.6 g/dL (3.5-5.0); ALKALINE PHOSPHATASE 63 U/L (38-126); ANION GAP 14.6 MEQ/L (5-15); BLOOD UREA NITROGEN 14 mg/dL (9-20); CHLORIDE 99 mmol/L (98-107); Calcium 8.9 mg/dL (8.4-10.2); Carbon Dioxide 25 mmol/L (22-30); Glucose 121 mg/dL (74-106); Potassium 4.3 mmol/L (3.5-5.1); SGOT/AST 30 U/L (17-59); SGPT/ALT 14 U/L (0-50); SODIUM 134 mmol/L (137-145); Total Protein 8.1 g/dL (6.3-8.2)
[2019-12-22 15:10] LABS: Appearance CLEAR (CLEAR); Bilirubin NEGATIVE (NEGATIVE); Blood NEGATIVE Ery/ul (0-5); Glucose NEGATIVE (NEGATIVE); Ketones NEGATIVE (NEGATIVE); Leukocyte Esterase NEGATIVE (NEGATIVE); Mucus SLIGHT /HPF (NEGATIVE); Nitrite NEGATIVE (NEGATIVE); Protein,Urine Dip 30 (Negative); Specific Gravity 1.018 (1.005-1.025); Urobilinogen NEGATIVE mg/dL (0-1)
[2019-12-22 15:22] LABS: Amphetamine,Urine NEGATIVE (NEGATIVE); Barbiturate,Urine NEGATIVE (NEGATIVE); Benzodiazepine,Urine NEGATIVE (NEGATIVE); Cocaine,Urine NEGATIVE (NEGATIVE); Methadone,Urine NEGATIVE (NEGATIVE); Opiate,Urine NEGATIVE (NEGATIVE); PCP,Urine NEGATIVE (NEGATIVE); THC,Urine NEGATIVE (NEGATIVE)
[2019-12-22 15:27] LABS: INFLUENZA A NEGATIVE (NEGATIVE); INFLUENZA B NEGATIVE (NEGATIVE); RESPIRATORY SYNCTIAL VIRUS NEGATIVE (Negative)
[2019-12-22] MEDS ORDERED: TYLENOL 325 MG PO STA (17:05)
[2019-12-22] MEDS ORDERED: MOTRIN 600 MG PO ONE (17:05)
[2019-12-22] MEDS ORDERED: TYLENOL 325 MG ONE (17:11)
[2019-12-22] MEDS ORDERED: MOTRIN 600 MG ONE (17:11)
[2019-12-22] MEDS ORDERED: Sodium Chloride 0.9% 500 ML 500 ML IV ONE ×2 (17:14→17:17)
[2019-12-22 18:30] VITALS: BP 95/43; PULSE 84; O2SAT 96
== END 2019-12-22 18:51 | disposition home or self-care (01) ==
LOC: ED 13:46
DX: X30.XXXA Exposure to excessive natural heat, initial encounter (principal); R11.2 Nausea with vomiting, unspecified; E86.0 Dehydration
CPT/HCPCS: 36000; 36415; 80053; 80307; 81001; 83605; 85025; 86308; 87040; 87631; 96360; 96361; 96374; 96375; 99284; U0003; J2405; A9270-GY

== ENCOUNTER 2023-06-30 16:52 | Emergency (ER) | payer OTHER ==
--- NOTE | 2023-06-30 17:31 | ERPHSYRPT ---
- History of Present Illness Time Seen by Provider: 06/30/23 17:31 Source: patient Exam Limitations: no limitations Physician History: This is a 33-year-old right-handed white male patient of Dr. Donahue who works at the [employer]. 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 Patient is having difficulty raising the right arm above his head because of pain at the shoulder on the right side. This occurred approximately 3 PM. Patient has no known drug allergies. Occurred: this afternoon Method of Injury: direct blow Quality: constant, aching, throbbing Severity of Pain-Max: moderate Severity of Pain-Current: moderate Extremities Pain Location: shoulder: right Modifying Factors: Improves With: immobilization (Improved), movement Allergies/Adverse Reactions: No Known Drug Allergies Allergy (Verified 06/30/23 17:25) Hx Tetanus, Diphtheria Vaccination/Date Given: Yes Hx Influenza Vaccination/Date Given: Yes Hx Pneumococcal Vaccination/Date Given: No Travel Risk - International Travel Have you traveled outside of the country in past 3 weeks: No - Coronavirus Screening Are you exhibiting any of the following symptoms?: No Close contact with a COVID-19 positive Pt in past 14-21 Days: No - Review of Systems Constitutional: No Symptoms Eyes: No Symptoms Ears, Nose, & Throat: No Symptoms Respiratory: No Symptoms Cardiac: No Symptoms Abdominal/Gastrointestinal: No Symptoms Genitourinary Symptoms: No Symptoms Musculoskeletal: Injury (Right shoulder) Skin: No Symptoms Neurological: No Symptoms Psychological: No Symptoms Endocrine: No Symptoms Hematologic/Lymphatic: No Symptoms Immunological/Allergic: No Symptoms All Other Systems: Reviewed and Negative - Past Medical History Pertinent Past Medical History: No Neurological History: No Pertinent History ENT History: No Pertinent History Cardiac History: No Pertinent History Respiratory History: Asthma Endocrine Medical History: No Pertinent History Musculoskeletal History: Fractures GI Medical History: Hernia History: No Pertinent History Psycho-Social History: No Pertinent History Male Reproductive Disorders: No Pertinent History Other Medical History: kts syndrome, bilateral arm fractures - Past Surgical History Past Surgical History: Yes Neuro Surgical History: No Pertinent History Cardiac: No Pertinent History Respiratory: No Pertinent History Gastrointestinal: Hernia Repair Genitourinary: No Pertinent History Musculoskeletal: Orthopedic Surgery Male Surgical History: No Pertinent History Other Surgical History: cranial reconstruction, bilateral arms - Social History Smoking Status: Never smoker Exposure to second hand smoke: No Drug Use: none Patient Lives Alone: No - Nursing Vital Signs Nursing Vital Signs: Initial Vital Signs Temperature 98 F 06/30/23 17:34 Pulse Rate 67 06/30/23 17:34 Respiratory Rate 17 06/30/23 17:34 Blood Pressure 122/84 06/30/23 17:34 O2 Sat by Pulse Oximetry 100 06/30/23 17:34 Pain Scale Pain Intensity 6 - Physical Exam General Appearance: no apparent distress, alert, anxiety Eyes, Ears, Nose, Throat Exam: normal ENT inspection, moist mucous membranes Neck Exam: normal inspection, non-tender, supple, full range of motion Cardiovascular/Respiratory Exam: chest non-tender, no respiratory distress Abdominal Exam: non-tender Back Exam: normal inspection, normal range of motion, No CVA tenderness, No vertebral tenderness Shoulder Exam: bone tenderness (Right shoulder), limited ROM, pain (Shoulder), soft tissue tenderness (Right shoulder), No deformity Elbow/Forearm Exam: normal inspection, non-tender, no evidence of injury, normal ROM Wrist Exam: normal inspection, non-tender, no evidence of injury, normal ROM Neuro/Tendon Exam: normal sensation, normal motor functions, normal tendon functions, responds to pain, no evidence tendon injury Mental Status Exam: alert, oriented x 3, cooperative Skin Exam: normal color, warm, dry SpO2 Interpretation: normal O2 Delivery: Room Air - Course Nursing assessment & vital signs reviewed: Yes Ordered Tests: Active Orders 24 hr Category Date Time Status Sling Application STAT Care 06/30/23 18:11 Ordered SHOULDER Stat Exams 06/30/23 17:33 Taken Medication Summary Generic Name Dose Route Start Last Admin Trade Name Fernando PRN Reason Stop Dose Admin Methylprednisolone Sodium 0 mg 06/30/23 18:12 Succinate 125 mg/ Sterile IM 06/30/23 18:13 Water 2 ml STAT ONE Hydromorphone HCl 1 mg 06/30/23 18:12 Hydromorphone 1 Mg/1ml Inj IM 06/30/23 18:13 STAT ONE Ondansetron HCl 4 mg 06/30/23 18:11 Zofran 4 Mg/Udtablet Orally Disintegrating PO 06/30/23 18:12 STAT ONE - Progress Progress: improved, pain not gone completely Progress Note: 06/30/23 18:16 This patient's medical issue is 1 of low complexity. Level complex in the workup performed is based on review of the patient's past medical history, review the patient's medication list, review the patient's drug allergy list, history present illness and physical findings on examination. Workup in this patient includes x-ray of the patient's right shoulder. I initially interpreted the patient's right shoulder x-ray. I did not appreciate any acute fracture or dislocation. I then reviewed the radiologist final interpretation/read of this x-ray and he agrees with my reading. Counseled pt/family regarding: diagnosis, need for follow-up, rad results Medical Desision Making - Independent Historian Additional History obtained from: Relative/friend - Diagnostic Testing Diagnostic test were ordered, analyzed, and reviewed by me: Yes Radiological Interpretation: Interpreted by me, Reviewed by me, Teleradiologist Report - Risk of complications The pt has a mod risk of morbidity or mortality based on: Need for prescription drug management - Departure Departure Disposition: Home Clinical Impression: Right shoulder injury Condition: Stable Critical Care Time: No Referrals: UMANG DONAHUE [NON-STAFF PHY W/O PRIVILEGES] - Follow up/PCP as directed Additional Instructions: Ice pack to right shoulder injury site 3 times a day for the next 72 hours. Additionally use ibuprofen 600 mg orally 3 times a day with food for the next 5 days. Take your other pain medicine as prescribed. Follow-up with [facility] orthopedic clinic on 07/03/2023, between 8 AM and 10 AM. It is a walk-in clinic. You do not need to have an appointment. I want to be evaluated for further evaluation management. Forms: Work/School Release Form Prescriptions: Oxycodone HCl/Acetaminophen [Percocet 5-325 mg Tablet] 1 each PO Q8H PRN PRN #9 tablet MDD 3 PRN Reason: Moderate To Severe Pain Orphenadrine Citrate 100 mg [Norflex 100 MG Tablet] 100 mg PO BID #10 tab
[2023-06-30 17:39] VITALS: BP 122/84; TEMP 98
[2023-06-30] MEDS ORDERED: ZOFRAN ODT 4 MG PO ONE (18:11)
[2023-06-30] MEDS ORDERED: Norflex 60 MG/2 ML IM ONE (18:12)
[2023-06-30] MEDS ORDERED: solu-MEDROL 125 MG, Sterile H2O 10 ml 2 ML IM ONE ×2 (18:12)
[2023-06-30] MEDS ORDERED: Hydromorphone 1 mg/ml Injection IM ONE (18:12)
[2023-06-30] MEDS ORDERED: Sterile H2O 10 ml IJ ONE (18:25)
[2023-06-30] MEDS ORDERED: ZOFRAN ODT 4 MG ONE (18:26)
[2023-06-30] MEDS ORDERED: solu-MEDROL ONE (18:26)
[2023-06-30] MEDS ORDERED: Norflex 60 MG/2 ML ONE (18:26)
[2023-06-30] MEDS ORDERED: Hydromorphone 1 mg/ml Injection ONE (18:26)
[2023-06-30 18:49] VITALS: PULSE 72; RESP 16; O2SAT 97
--- NOTE | 2023-06-30 21:06 | XRAY ---
Indication: Pain and swelling following injury. Comparison: None 3 view right shoulder obtained. Scapular Y-view limited due to suboptimal positioning. No bony, articular, or soft tissue abnormalities.
== END 2023-06-30 18:48 | disposition home or self-care (01) ==
LOC: ED 16:52
DX: S49.91XA Unspecified injury of right shoulder and upper arm, initial encounter (principal); W20.8XXA Other cause of strike by thrown, projected or falling object, initial encounter; Y92.64 Mine or pit as the place of occurrence of the external cause; Y99.0 Civilian activity done for income or pay; Z79.891 Long term (current) use of opiate analgesic
CPT/HCPCS: 73030; 96372; 99284; J1170; J2360; J2930; Q0162